=== PATIENT | female | born 1990 | race American Indian/Alaskan Native ===

== ENCOUNTER → 2020-10-22 | Outpatient (CLI) | payer OTHER ==
--- NOTE | 2020-10-23 08:52 | ECGEPIP ---
[facility] Test Date: 2020-10-22 Pat Name: NEWTON SPENCER Department: Room: - Gender: Female Strapper And Buffer: ANA LAURA : 1990 Requested By: Laney Villarreal Order Number: [id number] Reading MD: Parish Mckay Measurements Intervals [place] Rate: 60 P: 43 UT: 148 QRS: 46 QRSD: 76 T: 26 QT: 378 QTc: 378 Interpretive Statements Normal sinus rhythm with sinus arrhythmia Nonspecific T wave abnormality Comparison tracing not on file Electronically Signed on 10-23-2020 8:52:30 EDT by Parish Mckay
== END ==
LOC: M EKG 10:32
PROVIDERS: ATTEND Nurse Practitioner Women's Health
DX: O24.019 Pre-existing type 1 diabetes mellitus, in pregnancy, unspecified trimester (principal); Z3A.11 11 weeks gestation of pregnancy

== ENCOUNTER 2020-11-12 15:02 | Emergency (ER) | payer OTHER ==
[~2020-11-12] VITALS: Ht 152.4 cm; Wt 87.0 kg
[2020-11-12] MEDS ORDERED: PRENTAB53 PO (15:09)
[2020-11-12 17:21] LABS: BASO % 0.4 % (0.0-1.0); EOS # 0.1 10^3/uL (0.0-0.5); HEMATOCRIT 39.8 % (36.0-47.0); HEMOGLOBIN 13.2 g/dl (12.0-15.5); LYMPH # 2.4 10^3/uL (1.5-5.0); MEAN CORPUSCULAR HEMOGLOBIN 28.6 pg (27.0-33.0); MEAN CORPUSCULAR HGB CONC 33.2 g/dl (32.0-36.5); MEAN CORPUSCULAR VOLUME 86.1 fl (80.0-96.0); MONO # 0.5 10^3/uL (0.0-0.8); MONO % 6.5 % (2.0-8.0); NEUTROPHILS # 4.3 10^3/uL (1.5-8.5); NEUTROPHILS % 58.8 % (36.0-66.0); PLATELET COUNT, AUTOMATED 278 10^3/uL (150-450); RED BLOOD COUNT 4.62 10^6/uL (4.00-5.40); WHITE BLOOD COUNT 7.2 10^3/uL (4.0-10.0)
--- NOTE | 2020-11-12 17:34 | REP ---
INDICATION: R flank pain, dx with uti today, r/o pyelo COMPARISON: None TECHNIQUE: Real time white scale ultrasound examination using curved array transducer. FINDINGS: Kidneys are normal in contour, size, echogenicity, and reniform shape. No hydronephrosis, nephrolithiasis, cystic or renal mass lesion. Right kidney measures 10.4 x 5.2 x 4.2 cm. Left kidney measures 12.2 x 5.3 x 5.6 cm and includes normal common of [place]. Bladder is under distended. noted ( heart rate equals 134 beats per minute.) IMPRESSION: 1. Normal renal ultrasound. <Electronically signed by Franky Goldstein > 11/12/20 [id number]
[2020-11-12 17:48] LABS: ALBUMIN 3.4 GM/DL (3.2-5.2); BILIRUBIN,DIRECT 0.2 MG/DL (0.0-0.2); BILIRUBIN,TOTAL 0.4 MG/DL (0.2-1.0)
[2020-11-12] MEDS: ACETAMINOPHEN 500 MG TAB PO ONE (18:02)
[2020-11-12] MEDS ORDERED: NITR1CAP11 PO (18:14)
[2020-11-12] MEDS: cefTRIAXone SOD 1 GM in D5W MINI-BAG PLUS 50 ML IV ONE (19:38)
[2020-11-12] MEDS: NS 1,000 ML IV ONE (19:38)
[2020-11-12 20:33] VITALS: BP 112/53
== END 2020-11-12 20:37 | disposition home or self-care (01) ==
LOC: M ED 15:02
DX: O23.42 Unspecified infection of urinary tract in pregnancy, second trimester (principal); O09.292 Supervision of pregnancy with other poor reproductive or obstetric history, second trimester; O99.512 Diseases of the respiratory system complicating pregnancy, second trimester; J45.909 Unspecified asthma, uncomplicated; O99.342 Other mental disorders complicating pregnancy, second trimester; F41.9 Anxiety disorder, unspecified; F33.9 Major depressive disorder, recurrent, unspecified; Z3A.15 15 weeks gestation of pregnancy; Z86.19 Personal history of other infectious and parasitic diseases; Z87.440 Personal history of urinary (tract) infections; Z98.890 Other specified postprocedural states
CPT/HCPCS: 76775; 80047; 80076; 81001; 83690; 85025; 87088; 87186; 96365; 99284; J0696

== ENCOUNTER 2021-02-18 16:07 | Emergency (ER) | payer OTHER ==
[~2021-02-18] VITALS: Ht 152.4 cm; Wt 88.1 kg
[~2021-02-18 16:07] MED LIST: NITR1CAP11 PO; PRENTAB53 PO
[2021-02-18] MEDS ORDERED: IRON27TA2 PO (16:41)
[2021-02-18] MEDS ORDERED: b6 PO (16:41)
[2021-02-18] MEDS ORDERED: NS 1,000 ML IV ONE (18:20)
[2021-02-18] MEDS ORDERED: METOCLOPRAMIDE INJ 10MG/2ML VIAL (J2765 PER 1) IV ONE (18:20)
[2021-02-18 18:53] LABS: BASO % 0.5 % (0.0-1.0); EOS # 0.1 10^3/uL (0.0-0.5); EOS % 1.2 % (0.0-3.0); HEMATOCRIT 37.1 % (36.0-47.0); HEMOGLOBIN 12.1 g/dl (12.0-15.5); LYMPH # 2.4 10^3/uL (1.5-5.0); LYMPH % 32.3 % (24.0-44.0); MEAN CORPUSCULAR HEMOGLOBIN 28.9 pg (27.0-33.0); MEAN CORPUSCULAR HGB CONC 32.6 g/dl (32.0-36.5); MEAN CORPUSCULAR VOLUME 88.5 fl (80.0-96.0); MONO # 0.5 10^3/uL (0.0-0.8); MONO % 6.6 % (2.0-8.0); NEUTROPHILS # 4.4 10^3/uL (1.5-8.5); NEUTROPHILS % 58.7 % (36.0-66.0); PLATELET COUNT, AUTOMATED 245 10^3/uL (150-450); RED BLOOD COUNT 4.19 10^6/uL (4.00-5.40); WHITE BLOOD COUNT 7.4 10^3/uL (4.0-10.0)
[2021-02-18 18:56] LABS: ALT/SGPT 10 U/L (12-78); BILIRUBIN,DIRECT 0.1 MG/DL (0.0-0.2); BILIRUBIN,TOTAL 0.4 MG/DL (0.2-1.0); BLOOD UREA NITROGEN 6 MG/DL (7-18); CALCIUM LEVEL 8.5 MG/DL (8.5-10.1); CARBON DIOXIDE LEVEL 26 MEQ/L (21-32); CHLORIDE LEVEL 108 MEQ/L (98-107); CREATININE FOR GFR 0.42 MG/DL (0.55-1.30); GLOMERULAR FILTRATION RATE > 60.0 (>60); GLUCOSE, FASTING 84 MG/DL (70-100); LIPASE 58 U/L (73-393); SODIUM LEVEL 139 MEQ/L (136-145); TOTAL PROTEIN 6.1 GM/DL (6.4-8.2)
[2021-02-18] MEDS ORDERED: REGL10TA6 PO (21:13)
[2021-02-18 21:15] VITALS: BP 111/56
== END 2021-02-18 21:40 | disposition home or self-care (01) ==
LOC: M ED 16:07
DX: O21.9 Vomiting of pregnancy, unspecified (principal); Z3A.29 29 weeks gestation of pregnancy; O99.513 Diseases of the respiratory system complicating pregnancy, third trimester; J45.909 Unspecified asthma, uncomplicated; O99.343 Other mental disorders complicating pregnancy, third trimester; F33.9 Major depressive disorder, recurrent, unspecified; F41.9 Anxiety disorder, unspecified; Z79.899 Other long term (current) drug therapy
CPT/HCPCS: 80048; 80076; 81001; 83690; 85025; 93005; 96361; 96374; 99284; J2765

== ENCOUNTER 2021-04-21 14:42 | Outpatient (CLI) | payer OTHER ==
[~2021-04-21] VITALS: Ht 152.4 cm; Wt 91.1 kg
[~2021-04-21 14:42] MED LIST changes: +IRON27TA2 PO; +REGL10TA6 PO; +b6 PO
[2021-04-21] MEDS ORDERED: ACET-907 PO (15:01)
[2021-04-21] MEDS ORDERED: HOME MED LIST COMPLETE! XX SCH (15:05)
[2021-04-21 15:10] VITALS: BP 127/80
--- NOTE | 2021-04-21 16:38 | IPNPDOC ---
Text Note Date of Service The patient was seen on 04/21/21. NOTE Chief Complaint: Ms. Shoemaker is a 31 year old G 4 P2 at 37+6 weeks gestation presenting to L&D triage for complaints of pelvic pain. Patient presents: alone HPI: Reports constant pelvic pain for the last 2 weeks. Worse with leg movements, walking and sitting. States she does wear support belt when up walking around. Denies any leaking of fluid, vaginal bleeding. Reporting good movement. Denies any contractions. Reports drinking 3 bottles of water a day. Denies any headaches, nausea, vomiting, RUQ pain. Denies any dysuria, vaginal discharge, vaginal itching/burning. Objective: VS: 127/80, P19, T99.8 General: Alert. Well-appearing, in no acute distress PSYCH: Well groomed. Appropriate affect, normal mood. Conversed easily. Neuro: Oriented to time, place, and person. RESP: Unlabored breathing. ABD: Soft, non-tender. MSK: legs without edema bilaterally. Normal mvmt all extremities. Steady gait. Mirian from a seated position without assistance. Point tenderness to symphysis pubis. Obstetrical: FHR: 150 baseline with moderate varibility and accels present. No decels. Noted contractions every 2 min, mild to palpation that patient does not report feeling. SVE: 1/thick/high, posterior/medium Pelvic exam: External Genitalia showed no abnormalities Uterus: Not tender. Appropriate size for gestational age. Alodize Machine Operator: Bethany Isabel&Nallely RN Laboratory Tests 04/21/21 15:32: Urine Color YELLOW, Urine Appearance HAZY, Urine pH 7.0, Urine Specific [place] 1.012, Urine Protein NEGATIVE, Urine Glucose (UA) NEGATIVE, Urine Ketones 1+H, Urine Blood NEGATIVE, Urine Nitrite NEGATIVE, Urine Bilirubin NEGATIVE, Urine Urobilinogen 4.0H, Urine Leukocyte Esterase TRACEH, Urine WBC (Auto) 1, Urine RBC (Auto) 0, Urine Hyaline Casts (Auto) 0, Urine Bacteria (Auto) 1+H, Urine Squamous Epithelial Cells 2, Urine Mucus (Auto) SMALL, Urine Sperm (Auto) A/P 31yo at 37+6 wks gestation evaluated in L&D triage for complaints of pelvic pain. VSS and normal Symphysis pubis dysfunciton: Physical exam significant for pain at symphysis pubis. Reactive NST, reassuring Not in labor. Urine culture pending. Encouraged more hydration with water due to keytones in urine and uterine cramping. Plan: To continue support belt. May use heat pack, bath and tylenol for pain. Discuss purposeful slow movements. Educated on routine OB return precautions and warning signs. Follow up on [facility] as previously scheduled. VS,Fishbone, I+O VS, Fishbone, I+O Vital Signs Date Time Temp Pulse Resp B/P (MAP) Pulse Ox O2 Delivery O2 Flow Rate FiO2 04/21/21 15:10 99.8 129 18 127/80 (96) KAREN MARTINEZ CNM Apr 21, 2021 16:38
== END 2021-04-21 17:00 | disposition home or self-care (01) ==
LOC: M LDO 14:42
PROVIDERS: ATTEND Advanced Practice Midwife
DX: O26.893 Other specified pregnancy related conditions, third trimester (principal); R10.2 Pelvic and perineal pain; Z3A.37 37 weeks gestation of pregnancy
CPT/HCPCS: 59025; 81001; 87086; G0378; G0463

== ENCOUNTER 2021-04-30 12:40 | Outpatient (CLI) | payer OTHER ==
[~2021-04-30] VITALS: Ht 154.9 cm; Wt 92.2 kg
[~2021-04-30 12:40] MED LIST changes: +ACET-907 PO
[2021-04-30] MEDS ORDERED: HOME MED LIST COMPLETE! XX SCH (13:05)
[2021-04-30 13:08] VITALS: BP 107/67
--- NOTE | 2021-04-30 14:33 | IPNPDOC ---
Obstetrical Progress Note Date of Service Apr 30, 2021 Objective Vital Signs Date Time Temp Pulse Resp B/P (MAP) Pulse Ox O2 Delivery O2 Flow Rate FiO2 04/30/21 13:08 99.2 83 16 107/67 (80) Assessment Variability: Moderate Heart Rate Tracing: Category I Tocometer Contractions: Yes Frequency: irregular Assessment and Plan Status: Reassuring Additional Comments Ms. Shoemaker is a 31yo F at 39+1 who presents for decreased FM. Her baby is still consistently moving, just subjectivley less today. She said she has only eaten a snack today at 0800 and no meals. Denied VB, LOF, contractions. VS normal. NST CAT I reactive. TAUS cephalic, MVP 7.6cm, +FM on US. status reassuring. Educated on kick counts, hydration, and nutrition. Educated on routine OB return precautions. Otherwise to follow up at IOL tomorrow. NIVIA HUBBARD DO Apr 30, 2021 14:33
== END 2021-04-30 14:35 | disposition home or self-care (01) ==
LOC: M LDO 12:40
PROVIDERS: ATTEND Obstetrics & Gynecology
DX: O36.8130 Decreased fetal movements, third trimester, not applicable or unspecified (principal); Z3A.39 39 weeks gestation of pregnancy
CPT/HCPCS: 59025; 76815; G0378; G0463

== ENCOUNTER 2021-05-01 19:29 | Inpatient (IN) | payer OTHER ==
[~2021-05-01] VITALS: Ht 154.9 cm; Wt 92.2 kg
[2021-05-01 19:46] VITALS: BP 123/64
[2021-05-01 20:41] VITALS: BP 119/67
[2021-05-01 20:54] LABS: HEMATOCRIT 34.2 % (36.0-47.0); HEMOGLOBIN 11.1 g/dl (12.0-15.5); MEAN CORPUSCULAR HEMOGLOBIN 28.2 pg (27.0-33.0); MEAN CORPUSCULAR HGB CONC 32.5 g/dl (32.0-36.5); MEAN CORPUSCULAR VOLUME 86.8 fl (80.0-96.0); PLATELET COUNT, AUTOMATED 300 10^3/uL (150-450); RED BLOOD COUNT 3.94 10^6/uL (4.00-5.40); WHITE BLOOD COUNT 7.8 10^3/uL (4.0-10.0)
[2021-05-01] MEDS ORDERED: LACTATED RINGER'S 1000 ML IV STA (23:03)
[2021-05-01] MEDS ORDERED: OXYTOCIN DRIP 30 UNITS in IV 1 EA IV SCH (23:05)
[2021-05-01] MEDS ORDERED: miSOPROStol 25MCG 1/4 TABLET PO ONE (23:05)
[2021-05-01] MEDS ORDERED: LIDOCAINE 1% MDV 20ML VIAL INFIL PRN (23:05)
[2021-05-01] MEDS ORDERED: TRANEXAMIC ACID INJection 1,000 MG in NS 100 ML IV PRN (23:05)
[2021-05-01] MEDS ORDERED: CARBOPROST TROMETHAMINE 250 MCG/ML AMP IM PRN (23:05)
[2021-05-01] MEDS ORDERED: OXYTOCIN DRIP 30 UNITS in IV 1 EA IV PRN (23:05)
[2021-05-01] MEDS ORDERED: OXYTOCIN INJ 10 UNITS/ML VIAL (J2590) IV PRN (23:05)
[2021-05-01 23:14] VITALS: BP 114/64
[2021-05-02] VITALS (28 sets, daily range): BP systolic 97–135; BP diastolic 53–76
--- NOTE | 2021-05-02 00:06 | HPEPDOC ---
Obstetrical History & Physical General Date of Admission May 01, 2021 at 19:29 History of Present Illness The patient is a 31 @ 39W3 by LMP C/W 1T US admitted for IOL at term. She denies any vaginal bleeding, abnormal vaginal discharge, leakage of fluids, urinary symptoms, or regular contractions. She denies any new headaches, visual abnormalities, chest pain, worsening dyspnea, facial swelling, or upper extrem ity swelling. At this time, she continues to report regular movement. Care Care: Good Care Dating Final EDC: May 06, 2021 Final EDC for Daily Update: May 06, 2021 EGA at Admission: 39 (39+3) Antepartum Course Diagnos(e)s 1. 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 Past Medical History Surgical History: Denies/None Family History Significant Family History: No pertinent family hx Social History Marital Status: Family situation: Spouse/partner home Psychosocial History: No pertinent psych hx * Smoker: non-smoker Alcohol: Denies Drugs: denies Abuse Violence Screening Have you been hit/kicked/slapp: No Have you been sexually assault: No Imunizations Tdap status: current Allergies Coded Allergies: No Known Drug Allergies (Verified Allergy, Unknown, 11/12/20) Medications Scheduled Ferrous Gluconate (Iron) 236 Mg Tablet, 1 TAB PO DAILY Vit,Calc76/Iron/Folic (Prenatabs Rx Tablet) 1 Each Tablet, 1 TAB PO DAILY [b6] , PO DAILY Scheduled PRN Acetaminophen (Tylenol) 325 Mg Tablet, 650 MG PO Q4-6HP PRN for PAIN LEVEL 5-7 Physical Examination Physical Examination GENERAL: Alert and oriented times three. BREAST: . ABDOMEN: Gravid and non-tender to touch. FETUS: Is vertex (VTX) by sterile vaginal examination (SVE), fetus is vertex (VTX) by Pollo. HEART RATE: Regular rate and rhythm. LUNGS: NORMAL WORK OF BREATHING EXTREMITIES: No edema. SVE: 2/50/-3 Vital Signs/I&O Vital Signs Date Time Temp Pulse Resp B/P (MAP) Pulse Ox O2 Delivery O2 Flow Rate FiO2 05/01/21 20:41 70 119/67 (84) 05/01/21 19:46 99.0 16 Laboratory Data 24H LABS Laboratory Tests 2 05/01/21 19:37: Serology Scanned Report Hepatitis B Testing 05/01/21 20:36: Nucleated Red Blood Cells % (auto) 0.0, Syphilis Serology NONREACTIVE CBC/BMP Laboratory Tests 05/01/21 20:36 Assessment Heart Rate (FHR): 140 Variability: Moderate Accelerations: Positive Decelerations: None Tocometer Contractions: Yes Frequency: irregular Assessment/Plan Assessment Assessment: The patient is a 31 @ 39W3 by LMP C/W 1T US admitted for IOL at termPelvis proven to 6bs 12 oz. Pelvis Adequate for trial of labor. Category I FHRT. APC: 1. A1GMD- ADmission FSG pending SVE: /-3 GBS NEG Cephalic by exam EFW 3400G RH POS Plan Plan: - Admit to L&D. - Consent signed and given to RN - CBC with type and screen. - EFM x2 - Patient does not want epidural for now - Risks of augmentation with Cytotec, Jade-Bulb, and Pitocin discussed with patient. - Start cervical ripening with double lumen fole bulb Labor and Delivery Counseling We will deliver your baby through the vagina with possible assistance of forceps or vacuum device if needed for maternal or indications. Forceps and vacuum are devices that can assist with vaginal delivery when normal pushing efforts cannot achieve delivery on their own or when delivery is needed in an emergency for baby's well-being. Medications may be required to induce or augment (help) your labor in order to achieve a vaginal delivery. An episiotomy may be required to help your baby to delivery vaginally. You may also require repair of any lacerations or tears of your vagina or vulva that are caused by delivery. In some cases, emergencies can occur that require an emergency section delivery so quickly that there may not be enough time to stop and complete consent forms for section. Understand that if this occurs, your providers will discuss the need for a section with you before they proceed with surgery. section is the delivery of your baby through an incision in your abdomen. In some situations, section may be safer to mom and baby than continuing labor and is only performed when clinically indicated. Risks of vaginal delivery include but are not limited to: Bleeding, infection, injury to the vagina, pelvic structures, injury to baby, damage to the uterus, reactions to anesthesia, uterine rupture, risk of hysterectomy for life threatening bleeding, or . Medications used to induce or augment labor may increase your risk for infection, uterine tachysystole, uterine rupture, heart rate abnormalities, need for emergency delivery or possible hysterectomy, and hemorrhage. Additional risks for use of forceps and vacuum include: increased risk of perineal and vaginal lacerations, risk of urinary or bowel incontinence, increased risk of injury to baby with bruising, scratches, hematomas on the head, or intracranial bleeding. ANA MEDINA MD May 02, 2021 00:06
[2021-05-02] MEDS: LR 1,000 ML IV SCH ×2 (00:43→09:11)
[2021-05-02] MEDS ORDERED: OXYTOCIN 30 UNITS IN 0.9% NaCl 500ML IV BAG (J2590) As Ordered ONE (05:54)
--- NOTE | 2021-05-02 09:30 | IPNPDOC ---
Obstetrical Progress Note Date of Service May 02, 2021 Subjective Not feeling contractions. States she didn't feel pain with last labor either. Spouse at for support. Objective Vital Signs Date Time Temp Pulse Resp B/P (MAP) Pulse Ox O2 Delivery O2 Flow Rate FiO2 05/02/21 07:10 97.9 60 18 115/67 (83) Assessment Heart Rate (FHR): 135 Variability: Moderate Accelerations: Positive Decelerations: None Heart Rate Tracing: Category I Tocometer Contractions: Yes Frequency: every 2-5 min. Assessment and Plan Additional Comments A/P 31yo at 39+3 wks gestation admitted for IOL for A1GDM yesterday O positive/GBS negative/RI/ VSS FHR Cat 1 tracing, reassuring IOL was started with velasquez bulb and pitocin. Velasquez bulb was removed around 0400. Pitocin was started at 0630. SVE: 6(very strechy)/ 60/-3with ballottable head. AROM deferred at this time until further decent achieved. Continue titration with pitocin. Address pain needs as they arise Anticipate Plan reassessment in 2-3 hours. Consult physician service as needed KAREN MARTINEZ CNM May 02, 2021 09:30
--- NOTE | 2021-05-02 13:08 | IPNPDOC ---
Obstetrical Progress Note Date of Service May 02, 2021 Subjective Still not feeling pain. Can tell when she is having contractions. No pelvic pressure yet. Spouse at BS for support. Objective Vital Signs Date Time Temp Pulse Resp B/P (MAP) Pulse Ox O2 Delivery O2 Flow Rate FiO2 05/02/21 12:42 67 108/62 (77) 05/02/21 11:00 98.4 05/02/21 07:10 18 Assessment Heart Rate (FHR): 135 Variability: Moderate Accelerations: Positive Decelerations: None Heart Rate Tracing: Category I Tocometer Frequency: every 2-5 min. Assessment and Plan Additional Comments A/P 31yo at 39+3 wks gestation admitted for IOL for A1GDM yesterday O positive/GBS negative/RI/ VSS FHR Cat 1 tracing, reassuring IOL was started with velasquez bulb and pitocin. Velasquez bulb was removed around 0400. Pitocin was started at 0630. Currently at 8mu/min SVE: 6(very strechy)/ 60/-2. AROM with clear fluid at 1301. Continue titration with pitocin. Address pain needs as they arise Anticipate Plan reassessment in 2-3 hours. Consult physician service as needed KAREN MARTINEZ CNM May 02, 2021 13:08
[2021-05-02] MEDS ORDERED: OXYTOCIN DRIP 30 UNITS in IV 1 EA IV PRN (14:00)
[2021-05-02 15:00] LABS: CORD GAS ABE A -2.5; CORD GAS HCO3 A 24.6 MEQ/L; CORD GAS O2 SAT A 32.4 %; CORD GAS PCO2 A 51.8 mmHg; CORD GAS PH A 7.295 UNITS; CORD GAS SBC A 20.9 MEQ/L; CORD GAS TCO2 A 26.2 MEQ/L
[2021-05-02 15:03] LABS: CORD GAS HCO3 V 22.8 MEQ/L; CORD GAS O2 SAT V 56.6 %; CORD GAS PCO2 V 43.3 mmHg; CORD GAS PH V 7.339 UNITS; CORD GAS PO2 V 25.5 mmHg; CORD GAS TCO2 V 24.1 MEQ/L
--- NOTE | 2021-05-02 15:28 | DNPDOC ---
[facility] Delivery Note Delivery Note Date of Delivery: 02 May 2021 @ 1445 hours Pre-Procedure Diagnosis: 1. 31 year old at 39+3 weeks gestation 2. Rh positive 3. A1GDM 4. Induction of Labor Post-Procedure Diagnosis: 1. Normal spontaneous vaginal delivery, term up to 40 weeks gestation 2. Clitoral Lombardi laceration 3. Shoulder dystocia 4. Body cord complicating delivery Procedure: Spontaneous vaginal delivery Delivery Provider: MAJ Heather Fernandez CNM Anesthesia: none Estimated Blood Loss: 100 ml Findings: Delivered viable male weighing 3950gm (8#11oz) , Score 9/9 . Complications: 45 sec shoulder dystocia Delivery Summary: Patient is a 31 year old 4 now para 3-0-1-3 who was admitted to labor and delivery for IOL due to A1GDM. She progressed to C/C/+3 on pitocin and AROM induction. Noted FHR decelerations during pushing with terminal bradycardia in 90s. Good directed pushing efforts delivered infant OA, with head restituting to ROT. Right anterior shoulder did not deliver with gentle downward pressure and maternal efforts. Shoulder dystocia noted. Legs reset into Tima with release of anterior shoulder (about 15 seconds). Then patient with delayed pushing for delivery of posterior shoulder and corpus. total head to body time 45 sec, however minimal amount of time was for anterior dystocia. Remainder of time was for poor maternal pushing effort. Tight body cord, delivered through. Infant temporarily to maternal abdomen until cord clamped x2 and cut. Then infant taken to radiant warmer by nursing staff for further assessment. Segment of cord obtained for gases and cord blood obtained for typing due to maternal blood type. Placenta delivered with gentle cord traction, in Adams mechanism, appears complete and intact with 3VC. Fundus massaged to firm with minimal bleeding. Inspection revealed 1 cm inferior clitoral lombardi, not bleeding. Discussed option with patient to approximate edges under lidocaine or leave alone. Pt elects for suture. Lidocaine 1% instilled. Repaired with single purse string 4-0 suture with good approximation. Pt tolerated well. Sponge, needle, instrument count correct following delivery. Vaginal sweep confirmed nothing foreign remaining in vagina. Patient and infant stable and bonding in skin to skin when I left. Desires to breast feed and unsure about control. I delivered the , completed the repair, and completed the documentation personally. -BRIAN Cline ADINA M. CNM May 02, 2021 15:18
[2021-05-02] MEDS ORDERED: IBUPROFEN 600MG TAB PO PRN (15:30)
[2021-05-02] MEDS ORDERED: DIBUCAINE 1% OINTMENT 30GM TOP PRN (15:30)
[2021-05-02] MEDS ORDERED: IBUPROFEN 800 MG TAB PO PRN (15:30)
[2021-05-02] MEDS ORDERED: ACETAMINOPHEN TAB 650MG DOSE (2X325MG) PO PRN (15:30)
[2021-05-02] MEDS ORDERED: METHYLERGONOVINE MALEATE 0.2 MG TAB PO PRN (15:30)
[2021-05-02] MEDS ORDERED: ACETAMINOPHEN 500 MG TAB PO PRN (15:30)
[2021-05-02] MEDS ORDERED: DOCUSATE SODIUM 100MG CAPSULE PO PRN (15:30)
[2021-05-03 06:18] VITALS: BP 91/54
--- NOTE | 2021-05-03 07:32 | IPNPDOC ---
Progress Note Date of Service: May 03, 2021 Day#: 1 Progress Note SUBJECT: Ms. Shoemaker is a 31yo s/p at 39+3 after induction of labor for A1GDM c/b a 45s shoulder dystocia and clitoral norris laceration; viable infant male weighing 3950gm (8#11oz) , Score 9/9, EBL 100cc. She has been ambulating, voiding spontaneously without issue and tolerating regular diet. Breast feeding without issue. Reports lochia is less than a normal period. Patient is ambulating well. Reports some cramping with . Denies any pain. Voiding and passing flatus without difficulty. She has a history of depression and on her EDPS reports thoughts of self harm. She states she has these frequently with the last being 2 weeks ago. She does not have a plan, the last time she felt she had a plan was 1y ago. She denied thoughts of harm to her baby or others. She reports she was supposed to start effexor for depression but did not due to concerns with and . I explained that effexor is a commonly used medication in and and has had no evidence of harm. OBJECTIVE: VITAL SIGNS: Within normal limits, afebrile. Alert and oriented times three. No increased WOB. Heart rate: non-tachycardic. Abdomen: Fundus firm at U-2. Soft, NTTP. [Minimal] lochia per patient. ASSESSMENT: Ms. Shoemaker is a 31yo s/p at 39+3 after induction of labor for A1GDM c/b a 45s shoulder dystocia and clitoral norris laceration; viable infant male weighing 3950gm (8#11oz) , Score 9/9, EBL 100cc. Vitals within normal limits, afebrile, hemodynamically stable with no evidence of infection. She clemente a history of depression with intermittent thoughts of self harm without a plan, last being 2 weeks ago. PLAN: 1. Discharge to home today. 2. Tylenol and Motrin for pain. 3. Encourage breast feeding and ambulation. 4. Unsure plan for control, discussed options safe with and risks of close interval . 5. Routine PP visit in 6 weeks in clinic. 6. Discussed return precautions at length and activity limitations (pelvic rest). 7. Consulting psych for evaluation and treatment recommendations. 8. Consulting social work. VS, I&O, 24H, Jeff Vital Signs/I&O Vital Signs Date Time Temp Pulse Resp B/P (MAP) Pulse Ox O2 Delivery O2 Flow Rate FiO2 05/03/21 06:18 98.0 63 18 91/54 (66) 05/02/21 17:52 98 Room Air l I&O- Last 24 Hours up to 6 AM 05/03/21 05:59 Intake Total 3011.1 ml Output Total 675 ml Balance 2336.1 ml Laboratory Data 24H LABS Laboratory Tests 2 05/02/21 10:16: Coronavirus (COVID-19)(PCR) NEGATIVE 05/02/21 14:51: Cord Arterial Blood pH 7.295, Cord Arterial Blood PCO2 51.8, Cord Arterial Blood PO2 19.0, Cord Arterial Blood HCO3 24.6, Cord Arterial Blood Total CO2 26.2, Cord Arterial Blood Base Excess -2.5, Cord Arterial Base Excess (Standard 20.9, Cord Arterial Bld Oxygen Saturation 32.4, Cord Venous Blood pH 7.339, Cord Venous Blood PCO2 43.3, Cord Venous Blood PO2 25.5, Cord Venous Blood HCO3 22.8, Cord Venous Blood Total CO2 24.1, Cord Venous Base Excess (Actual) -3.0, Cord Venous Base Excess (Standard) 21.0, Cord Venous Blood Oxygen Saturation 56.6 NIVIA HUBBARD DO May 03, 2021 07:32
[2021-05-03] MEDS: PRENATAL VITAMINS CHEWABLE TABLET PO SCH (11:49)
--- NOTE | 2021-05-03 17:41 | MHCRPDOC ---
[facility] Consultation Consultation DATE OF CONSULTATION: 05/03/21 CONSULTATION REQUESTED BY: Dr. Li from [place] REASON FOR CONSULTATION: Assess patient regarding her depression and dangerousness to self and others RELEVANT HISTORY: She is a 31-year-old female, from [place] where her is an active duty soldier who delivered baby today after induction of labor. The labor was in consequential. Both baby and the mother seem to be stable. Her was by her side when I was evaluating her. She has history of depression starting from age 19 though she had no psychiatric hospitalizations, while she was in the dorm she was monitored. Her last suicide attempt was 7 to 8 years ago, by trying to hang herself tying the rope to a ceiling fan. The rest of the attempts where by cutting her wrist and arm and also the heel. Lot of her depression according to the patient and her is due to family conflict. After patient came to [place] she has been more stable. She continues to have some depressed mood and fleeting suicidal thoughts which are mild, patient has 2 other children. She reports she loves her children, and does not want to attempt any suicide Patient has been on several medications with the longest duration of time she has been on any medication is Zoloft, for the last 1 year she has not taken any medications, she goes to [facility] for treatment, she has a therapist and a doctor. Denies any history of manic episodes, she has a history of panic disorder with agoraphobia. Denies any substance use disorder. The last time patient had any suicidal thoughts was 2 weeks ago without plans. Both patient and her 's family is from [place]. PAST PSYCHIATRIC HISTORY: Extensive history of depression as described above MENTAL STATUS EXAMINATION: Patient is a [AGE]-year old female, who is overweight . Speech is rate rhythm and volume are good Language skills are good Thought processes including: Linear goal-directed Thought content: Denied any suicidal thoughts, Abstract reasoning, and computation: Good Description of associations: Good Description of abnormal or psychotic thoughts: None Judgment: Good Insight: Good Orientation to oriented to time place and person Recent and remote memory: Good Attention span and concentration: Good Language: Good Fund of knowledge: Good Mood: Anxious Affect: Anxious DIAGNOSIS: 1. Major depressive disorder recurrent in remission 2. Panic disorder with agoraphobia PLAN: 1. Patient has appointment at [facility] with her psychiatrist and the therapist, on May 15, her is supportive he reports, that he could monitor her and any decompensation ,more depression, or suicidal thoughts or homicidal thoughts he will you will call for help. 2. Place her on Zoloft 50 mg daily 3. Patient and the patient's understand about depression and the risk to the mother and baby 4. I have discussed with them about medication Zoloft which is excreted through breastmilk, and when it is essential we do give medications weighing risks and the benefits. Patient and her agreed For the plan.. Vital Signs Vital Signs Date Time Temp Pulse Resp B/P (MAP) Pulse Ox O2 Delivery O2 Flow Rate FiO2 05/03/21 06:18 98.0 63 18 91/54 (66) 05/02/21 17:52 98 Room Air Home Medications Current Medications Current Medications Medications (Trade) Dose Ordered Sig/Derrick Route PRN Reason Start Time Stop Time Status Last Admin Dose Admin Acetaminophen (Tylenol Tab) 650 mg Q4HP PRN PO PAIN LEVEL 1-5 05/02/21 15:30 Acetaminophen (Tylenol Tab) 1,000 mg Q6HP PRN PO PAIN LEVEL 6-10 05/02/21 15:30 Carboprost Tromethamine (Hemabate) 250 mcg Q15M PRN IM MOD/HEAVY LOCHIA 05/01/21 23:05 05/02/21 15:36 DC Dibucaine (Dibucaine 1%) Apply to perineum Q4H PRN TOP perineal pain 2-10 05/02/21 15:30 Docusate Sodium (Colace) 100 mg QHSP PRN PO CONSTIPATION 05/02/21 15:30 Ibuprofen (Advil) 600 mg Q6HP PRN PO PAIN LEVEL 1-5 05/02/21 15:30 Ibuprofen (Advil) 800 mg Q8HP PRN PO PAIN LEVEL 6-10 05/02/21 15:30 Lactated Ringer's 1,000 ml @ 125 mls/hr Q8H IV 05/01/21 23:05 05/02/21 15:36 DC 05/02/21 09:11 Lactated Ringer's (Lactated Ringer'S) 500 ml BOLUS STAT IV 05/01/21 23:03 05/01/21 23:25 DC Lidocaine HCl (LIDOCAINE 1% MDV 20ml) 20 ml ASDIRECTED PRN INFIL SEE LABEL COMMENTS 05/01/21 23:05 05/02/21 15:01 DC 05/02/21 14:59 Methylergonovine Maleate (Methergine) 0.2 mg Q4HP PRN PO UTERINE ATONY/BLEEDING 05/02/21 15:30 Misoprostol (Cytotec) 1,000 mcg ASDIRECTED PRN DC MOD/HEAVY LOCHIA 05/01/21 23:05 Oxytocin (Pitocin) 5 units ASDIRECTED PRN IV SEE LABEL COMMENTS 05/01/21 23:05 05/02/21 15:36 DC Oxytocin 30 units/ IV Miscellaneous Supplies 500 ml @ 125 mls/hr ASDIRECTED PRN IV SEE LABEL COMMENTS 05/01/21 23:05 05/02/21 15:22 Oxytocin 30 units/ IV Miscellaneous Supplies 500 ml @ 999 mls/hr ASDIRECTED PRN IV SEE LABEL COMMENTS 05/02/21 14:00 05/02/21 15:01 DC 05/02/21 15:01 Oxytocin 30 units/ IV Miscellaneous Supplies 500 ml @ 0 mls/hr DRIP IV 05/01/21 23:05 05/02/21 15:36 DC 05/02/21 06:31 Prenat Multivit/ Apparel Pattern Maker/Iron/Folic Ac ( Vitamins) 1 tab DAILY PO 05/03/21 09:00 05/03/21 11:49 Sertraline HCl (Zoloft) 50 mg DAILY PO 05/03/21 09:00 Tranexamic Acid 1000 mg/Sodium Chloride 110 ml @ 660 mls/hr ASDIRECTED PRN IV MOD/HEAVY LOCHIA 05/01/21 23:05 05/02/21 15:36 DC Scheduled Sertraline HCl (Sertraline HCl) 50 Mg Tablet, 50 MG PO DAILY Scheduled PRN Docusate Sodium (Docusate Sodium) 100 Mg Capsule, 100 MG PO QHSP PRN for CONSTIPATION Ibuprofen (Ibuprofen) 600 Mg Tablet, 600 MG PO Q6HP PRN for PAIN LEVEL 1-5 Allergies Coded Allergies: No Known Drug Allergies (Verified Allergy, Unknown, 11/12/20) BRITTNEY JEAN MD May 03, 2021 17:41
[2021-05-03] MEDS: SERTRALINE HCL 50 MG TAB PO SCH (17:50)
[2021-05-03 18:12] VITALS: BP 106/51
[2021-05-04 06:00] VITALS: BP 119/66
[2021-05-04] MEDS ORDERED: DOCU100C16 PO (07:55)
[2021-05-04] MEDS ORDERED: SERT50TA29 PO (07:55)
[2021-05-04] MEDS ORDERED: IBUP-1022 PO (07:55)
[2021-05-04] MEDS ORDERED: INFLUENZA QUADRIVALENT PF VACCINE 0.5ML SYRINGE IM SCH (09:00)
[2021-05-04] MEDS: PRENATAL VITAMINS CHEWABLE TABLET PO SCH (09:07)
[2021-05-04] MEDS: SERTRALINE HCL 50 MG TAB PO SCH (09:07)
--- NOTE | 2021-05-04 17:13 | DSES ---
DISCHARGE SUMMARY DATE OF ADMISSION: 05/01/2021 DATE OF DISCHARGE: 05/04/2021 BRIEF HISTORY: A 31-year-old 4, now para 3, admitted at 39 and 3 weeks gestation for induction of labor, being an AGD M1, had a spontaneous vaginal delivery, male infant, 8 pounds 11 ounces, 3950 grams, scores of 9 and 9 at one and five minutes respectively. Arterial pH 7.29, base excess -2.5, venous pH 7.33, base excess -3.0. On her day #2, we discussed we discussed phlebitis, cystitis, mastitis, endometritis, cellulitis, diet, exercise, pain management, perineal, breast and wound care. Psychiatrist consulted because of her suicidal ideations. She was given medication and a phone number to call for an appointment on Wednesday or possibly Wednesday regarding her suicidal ideation. PHYSICAL EXAMINATION ON DISCHARGE: VITAL SIGNS: Blood pressure 119/66, respirations 16, pulse 60, temperature 97.8. HEAD: Normocephalic, atraumatic. Neck full range of motion. Pupils equal and reactive to light. Distal pulses are symmetric. The rest of the examination was unremarkable. No evidence of superficial phlebitis. No deep venous thrombosis (DVT). No specific risk factors noted. She has been on Zoloft before, has been well controlled. Consultation with anesthesia was made. Patient was prescribed Zoloft and has a followup appointment with Behavioral Health at [facility]. According to psychiatry here at the hospital, she is safe to be discharged. The patient expressed understanding of the need to take medications and to follow up with her Behavioral Health appointments. Patient was discharged improved to follow up with the appropriate appointments; six weeks for [facility]. Medications were dispensed at [facility]. All questions were answered, 25 minute discussion.
== END 2021-05-04 12:35 | disposition home or self-care (01) | DRG 806 ==
LOC: M LDI 19:29 → M OBS 05-02 17:40
PROVIDERS: ADMIT Obstetrics & Gynecology; ATTEND Obstetrics & Gynecology
PROC: 3E033VJ Introduction of Other Hormone into Peripheral Vein, Percutaneous Approach (ICD-10-PCS; 2021-05-01)
PROC: 10E0XZZ Delivery of Products of Conception, External Approach (ICD-10-PCS; principal; 2021-05-02)
PROC: 10907ZC Drainage of Amniotic Fluid, Therapeutic from Products of Conception, Via Natural or Artificial Opening (ICD-10-PCS; 2021-05-02)
PROC: 0HQ9XZZ Repair Perineum Skin, External Approach (ICD-10-PCS; 2021-05-02)
DX: O24.420 Gestational diabetes mellitus in childbirth, diet controlled (principal); Z37.0 Single live birth; F33.40 Major depressive disorder, recurrent, in remission, unspecified; Z3A.39 39 weeks gestation of pregnancy; O66.0 Obstructed labor due to shoulder dystocia; O69.2XX0 Labor and delivery complicated by other cord entanglement, with compression, not applicable or unspecified; O70.0 First degree perineal laceration during delivery; F40.01 Agoraphobia with panic disorder; O99.344 Other mental disorders complicating childbirth

== ENCOUNTER 2022-04-06 09:24 | Emergency (ER) | payer OTHER ==
[~2022-04-06] VITALS: Ht 152.4 cm; Wt 86.4 kg
[2022-04-06 09:24] VITALS: BP 118/78
[~2022-04-06 09:24] MED LIST changes: +DOCU100C16 PO; +IBUP-1022 PO; +SERT50TA29 PO
[2022-04-06 11:04] LABS: RSV AMPLIFICATION NEGATIVE (NEGATIVE)
== END 2022-04-06 12:58 | disposition home or self-care (01) ==
LOC: M ED 09:24
DX: J06.9 Acute upper respiratory infection, unspecified (principal); E11.9 Type 2 diabetes mellitus without complications; J45.909 Unspecified asthma, uncomplicated; F32.A Depression, unspecified; F41.9 Anxiety disorder, unspecified; Z79.899 Other long term (current) drug therapy

== ENCOUNTER 2022-07-29 12:31 | Emergency (ER) | payer OTHER ==
[~2022-07-29] VITALS: Ht 152.4 cm; Wt 89.3 kg
[2022-07-29 12:31] VITALS: BP 113/70
[2022-07-29] MEDS ORDERED: LEXA5TAB13 PO (12:53)
[2022-07-29] MEDS ORDERED: BUSP10TA PO (12:53)
[2022-07-29] MEDS ORDERED: PRAZ1CAP PO (12:54)
== END 2022-07-29 19:31 | disposition left against medical advice (07) ==
LOC: M ED 12:31
DX: Z53.21 Procedure and treatment not carried out due to patient leaving prior to being seen by health care provider (principal)

== ENCOUNTER 2023-08-13 10:52 | Inpatient (IN) | payer OTHER ==
[~2023-08-13 10:52] MED LIST changes: +BUSP10TA PO; +LEXA5TAB13 PO; +PRAZ1CAP PO
[2023-08-13 12:33] LABS: HEMOGLOBIN 13.8 g/dl (12.0-15.5); MEAN CORPUSCULAR HEMOGLOBIN 28.1 pg (27.0-33.0); MEAN CORPUSCULAR HGB CONC 32.9 g/dl (32.0-36.5); MEAN CORPUSCULAR VOLUME 85.5 fl (80.0-96.0); PLATELET COUNT, AUTOMATED 322 10^3/uL (150-450); RED BLOOD COUNT 4.91 10^6/uL (4.00-5.40); WHITE BLOOD COUNT 8.5 10^3/uL (4.0-10.0)
[2023-08-13 13:07] LABS: ETHYL ALCOHOL (ETHANOL) 0.006 % (0.000-0.010)
[2023-08-13 13:09] LABS: ALBUMIN 3.7 G/DL (3.2-5.2); ALKALINE PHOSPHATASE 66 U/L (46-116); ALT/SGPT 18 U/L (7.0-40); AST/SGOT 18 U/L (<34); BILIRUBIN,DIRECT 0.2 MG/DL (<0.4); BILIRUBIN,TOTAL 0.6 MG/DL (0.3-1.2); BLOOD UREA NITROGEN 8 MG/DL (9-23); CALCIUM LEVEL 8.7 MG/DL (8.5-10.1); CARBON DIOXIDE LEVEL 22 MMOL/L (20-31); CHLORIDE LEVEL 105 MMOL/L (98-107); CREATININE FOR GFR 0.56 MG/DL (0.55-1.30); GLOMERULAR FILTRATION RATE > 60.0 (>60); GLUCOSE, FASTING 127 MG/DL (60-100); HCG, SERUM QUALITATIVE NEGATIVE (NEGATIVE); SALICYLATE LEVEL < 3.0 MG/DL (<30); SODIUM LEVEL 136 MMOL/L (136-145); TOTAL PROTEIN 6.9 G/DL (5.7-8.2)
[2023-08-13 13:11] LABS: THYROID STIMULATING HORMONE 5.215 uIU/ML (0.55-4.78)
[2023-08-13 15:24] LABS: AMPHETAMINES LEVEL URINE NEGATIVE (NEGATIVE); BARBITURATES URINE NEGATIVE (NEGATIVE); BENZODIAZEPINES URINE NEGATIVE (NEGATIVE); CANNABINOIDS URINE NEGATIVE (NEGATIVE); COCAINE METABOLITE URINE NEGATIVE (NEGATIVE); METHADONE URINE NEGATIVE (NEGATIVE); OPIATES URINE NEGATIVE (NEGATIVE); PHENCYCLIDINE URINE NEGATIVE (NEGATIVE)
[2023-08-13] MEDS ORDERED: MED REC IN PROGRESS XX SCH (17:35)
[2023-08-13] MEDS ORDERED: ACETAMINOPHEN TAB 650MG DOSE (2X325MG) PO PRN (18:40)
[2023-08-13] MEDS ORDERED: traZODone 50 MG TAB PO PRN (18:40)
[2023-08-13] MEDS ORDERED: diphenhydrAMINE 25MG CAP PO PRN (18:40)
[2023-08-13] MEDS ORDERED: MAALOX 30 ML SUSP *UDC PO PRN (18:40)
[2023-08-13] MEDS ORDERED: MOM 30ML SUSPENSION UDC PO PRN (18:40)
[2023-08-13] MEDS ORDERED: IBUPROFEN 400MG TAB PO PRN (18:40)
[2023-08-13] MEDS ORDERED: ONDA4TAB6 PO (19:34)
[2023-08-13] MEDS ORDERED: BUSP5TA PO (19:34)
[2023-08-13] MEDS ORDERED: PANT40TA29 PO (19:34)
[2023-08-13] MEDS ORDERED: PRAZ2CAP PO (19:34)
[2023-08-13] MEDS ORDERED: MELA1TAB9 PO (19:34)
[2023-08-13] MEDS ORDERED: ALBU8.5H INH (19:34)
[2023-08-13] MEDS ORDERED: MECL25CH45 PO (19:34)
[2023-08-13] MEDS ORDERED: ADVA45AE INH (19:34)
[2023-08-13] MEDS ORDERED: LORY1TAB2 PO (19:34)
[2023-08-13] MEDS ORDERED: LEXA1TAB2 PO (19:34)
[2023-08-13] MEDS ORDERED: BUPR-71 PO (19:34)
[2023-08-13] MEDS ORDERED: HOME MED LIST COMPLETE! XX SCH (19:50)
[2023-08-14 06:47] VITALS: BP 92/54; TEMP 97.7; O2SAT 100
[2023-08-14] MEDS: ADVAIR HFA 45/21MCG INHALER INH SCH ×2 (08:00→20:00)
[2023-08-14] MEDS: ONDANSETRON 4MG ORAL DISINTEGRATING TAB PO SCH (09:00)
[2023-08-14] MEDS: busPIRone 5 MG TAB PO SCH ×2 (09:00→21:00)
[2023-08-14] MEDS: ESCITALOPRAM OXALATE 10 MG TAB (LEXAPRO) PO SCH (09:00)
[2023-08-14] MEDS: buPROPion **SR TABLET** (ZYBAN) 150MG PO SCH ×2 (09:00→21:00)
[2023-08-14] MEDS: PANTOPRAZOLE 40MG TAB (PROTONIX) PO SCH (09:00)
[2023-08-14] MEDS ORDERED: ALBUTEROL 90 MCG/ACT 8GM HFA INHALER INH PRN (09:40)
[2023-08-14] MEDS ORDERED: busPIRone 10 MG TAB PO SCH (21:00)
[2023-08-14] MEDS: PRAZOSIN 1 MG CAP PO SCH (21:00)
[2023-08-15] MEDS: ADVAIR HFA 45/21MCG INHALER INH SCH ×2 (08:00→20:00)
[2023-08-15] MEDS: ONDANSETRON 4MG ORAL DISINTEGRATING TAB PO SCH (09:00)
[2023-08-15] MEDS: ESCITALOPRAM OXALATE 10 MG TAB (LEXAPRO) PO SCH (09:50)
[2023-08-15] MEDS: PANTOPRAZOLE 40MG TAB (PROTONIX) PO SCH (09:50)
[2023-08-15] MEDS: busPIRone 5 MG TAB PO SCH ×2 (09:51→21:36)
[2023-08-15] MEDS: buPROPion **SR TABLET** (ZYBAN) 150MG PO SCH ×2 (09:51→21:35)
[2023-08-15 16:28] VITALS: BP 117/60; TEMP 97.9; O2SAT 96
[2023-08-15] MEDS: SUCRALFATE SUSP 1GM/10ML UD PO SCH (17:30)
[2023-08-15 21:42] VITALS: BP 140/71
[2023-08-15] MEDS: PRAZOSIN 1 MG CAP PO SCH (21:42)
[2023-08-16] MEDS: SUCRALFATE SUSP 1GM/10ML UD PO SCH ×2 (06:36→12:17)
[2023-08-16 06:48] VITALS: BP 108/58; TEMP 98; O2SAT 96
[2023-08-16] MEDS: ADVAIR HFA 45/21MCG INHALER INH SCH (08:00)
[2023-08-16] MEDS: PANTOPRAZOLE 40MG TAB (PROTONIX) PO SCH (08:52)
[2023-08-16] MEDS: buPROPion **SR TABLET** (ZYBAN) 150MG PO SCH (08:52)
[2023-08-16] MEDS: busPIRone 5 MG TAB PO SCH (08:53)
[2023-08-16] MEDS: ESCITALOPRAM OXALATE 10 MG TAB (LEXAPRO) PO SCH (08:53)
[2023-08-16] MEDS: ONDANSETRON 4MG ORAL DISINTEGRATING TAB PO SCH (08:53)
[2023-08-16] MEDS ORDERED: SUCR1ORA PO (12:03)
[2023-08-16] MEDS ORDERED: BUSP5TA PO (12:03)
[2023-08-16] MEDS ORDERED: TRAZ-252 PO (12:03)
[2023-08-16] MEDS ORDERED: BUPR15TASR PO (12:03)
[2023-08-16] MEDS ORDERED: PRAZ1CAP PO (12:03)
[2023-08-16] MEDS ORDERED: LEXA1TAB PO (12:03)
== END 2023-08-16 14:46 | disposition home or self-care (01) | DRG 881 ==
LOC: EDBD 10:52 → M ED 10:52 → M ED INP 18:36 → M PSY 23:09
PROVIDERS: ADMIT Student in an Organized Health Care Education/Training Program; ATTEND Student in an Organized Health Care Education/Training Program
DX: F32.A Depression, unspecified (principal); R45.851 Suicidal ideations; F41.9 Anxiety disorder, unspecified; F60.89 Other specific personality disorders; F60.3 Borderline personality disorder; E66.9 Obesity, unspecified; J45.909 Unspecified asthma, uncomplicated; Z83.3 Family history of diabetes mellitus; Z82.49 Family history of ischemic heart disease and other diseases of the circulatory system; Z91.51 Personal history of suicidal behavior; Z79.899 Other long term (current) drug therapy; Z20.822 Contact with and (suspected) exposure to COVID-19; Z86.16 Personal history of COVID-19

== ENCOUNTER → 2023-08-23 | Outpatient (CLI) | payer OTHER ==
[~2023-08-23] MED LIST changes: +ADVA45AE INH; +ALBU8.5H INH; +BUPR-71 PO; +BUPR15TASR PO; +BUSP5TA PO; +LEXA1TAB PO; +LEXA1TAB2 PO; +LORY1TAB2 PO; +MECL25CH45 PO; +MELA1TAB9 PO; +ONDA4TAB6 PO; +PANT40TA29 PO; +PRAZ2CAP PO; +SUCR1ORA PO; +TRAZ-252 PO
== END ==
LOC: M CARPUL 13:01
PROVIDERS: ATTEND Internal Medicine
DX: J45.40 Moderate persistent asthma, uncomplicated (principal)